=== PATIENT | female | born 1935 | race Caucasian/White ===

== ENCOUNTER 2016-08-23 13:17 | Outpatient (CLI) | payer MEDICARE, OTHER ==
[2016-03-26 12:48] VITALS: BP 152/68
== END 2016-08-23 13:19 ==
LOC: CARD 13:17
PROVIDERS: ATTEND Internal Medicine Cardiovascular Disease
DX: I10 Essential (primary) hypertension (principal)
CPT/HCPCS: 93005; G0463

== ENCOUNTER 2017-01-29 18:04 | Emergency (ER) | payer MEDICARE, OTHER ==
[2017-01-29 18:24] LABS: BASOPHILS % 0.3 (0.0-1.5); EOSINOPHILS % 1.6 % (0.0-6.8); MEAN CORPUSCULAR HEMOGLOBIN 31.3 pg (28.0-34.0); MEAN CORPUSCULAR VOLUME 93.6 fl (80.0-100.0); MONOCYTES % 4.2 % (0.0-11.0); NEUTROPHILS # 6.5 # k/uL (1.4-7.7)
--- NOTE | 2017-01-29 18:26 | ED Physician Documentation ---
Chest Pain - HISTORIAN Historian: patient, child - HPI Stated Complaint: Shortness of Breath Chief Complaint: Chest Pain Additional Information: OUT IN YARD PULLING WEEDS X 30 MINUTES OR LSO DEVELOPED EPIGASTRIC DISTRESS WENT INTO HOUSE HAD SOB-ALL BETTER ESS GONE NOW AND DIAPHORESIS Onset: hours (1) Duration: other (30 MINUTES) Last known Well Date: 01/29/17 Last Known Well Time: 09:42 Context: activity (PULLED STOOPING OVER) Severity: moderate Quality: pressure, indigestion (FELT THAT IF COULD BURP WOULD BE BETTER) Chest Pain Radiation: no radiation Chest Pain Signs/Symptoms: diaphoresis, dyspnea, tachypnea, tachycardia, hypotension, palpitations. denies: nausea, vomiting, dizziness Worsened By: nothing Relieved By: rest - ROS CONST: no problems MS/LYMPH: none. denies: neck pain, calf pain, ankle swelling, back pain GI/: none EYES/ENT: none SKIN/ENDO: none NEURO/PSYCH: none - PAST HX NH risk factors: hypertension, other (HEART MURMUR RAD TO CAROTID) TAD/AAA risk factors: none Neuro deficit: none GI disease: GERD, peptic ulcer Lung disease: none Surgeries/Procedures: cholecysectomy, appendectomy, other (STOMACH YHRS AGO FOR PUD) Allergies/Adverse Reactions: Allergies Allergy/AdvReac Type Severity Reaction Status Date / Time Sulfa (Sulfonamide Allergy Hives Verified 01/29/17 18:19 Antibiotics) Home Medications: Ambulatory Orders Medication Instructions Recorded Diltiazem HCl [Diltiazem 24Hr Cd] 240 mg PO DAILY 01/29/17 Esomeprazole Magnesium 40 mg PO DAILY 01/29/17 [Esomeprazole Magnesium] Hydrochlorothiazide 25 mg PO DAILY 01/29/17 [Hydrochlorothiazide] - SOCIAL HX Smoking History: non-smoker Alcohol Use: none Drug Use: none - FAMILY HX Family HX: none - VITAL SIGNS Vital Signs: Vital Signs Temp Pulse Resp BP Pulse Ox 97.1 F L 88 18 171/73 97 01/29/17 18:05 01/29/17 18:13 01/29/17 18:05 01/29/17 18:05 01/29/17 18:13 - REVIEWED ASSESSMENTS Nursing Assessment Reviewed: Yes Vitals Reviewed: Yes ED Results Lab/Radiology - Radiology Radiology Impressions: cxr no acute disease - Orders Orders: ED Orders Category Date Time Status Continuous EKG monitoring Q30M Care 01/29/17 18:13 Ordered Continuous Pulse Oximetry Q30M Care 01/29/17 18:13 Ordered CHEST 1 VIEW [RAD] Stat Exams 01/29/17 18:13 Ordered CBC/PLATELET/DIFF Routine Lab 01/29/17 18:13 Ordered CMP Routine Lab 01/29/17 18:13 Ordered CREATINE KINASE Routine Lab 01/29/17 18:13 Ordered TROPONIN I (cTnI) Stat Lab 01/29/17 18:13 Ordered Oxygen Daily Oxygen 01/29/17 18:15 Ordered EKG WITH COMPARISON Stat Ther 01/29/17 18:13 Ordered Chest Pain Physical Exam - EXAM General Appearance: no acute distress EENT: eye inspection normal Neck: nml inspection, JVD present, lymphadenopathy. No: no carotid bruit Respiratory: no resp. distress, chest non-tender, nml breath sounds CVS: reg. rate & rhythm, other (SYS MURMUR PROBABLY PULMONIC). No: no murmur Abdomen: soft, non-tender Skin: warm/dry, normal color. No: cyanosis, diaphoresis, jaundice Extremities: non-tender, normal range of motion, no evidence of injury, no edema Neuro: oriented X3, motor nml, sensation nml, mood/affect nml Discharge Clincal Impression: aacute gerd exaberation, hypokalemia, abn LFT'S UDO Referrals: Gareth Douglas MD [Primary Care Provider] - 2 Days Additional Instructions: PT TO AND POTASSIUM ALSO SEE DR DOUGLAS VERY SOON RE LFT Condition: Good Disposition: 01 HOME, SELF-CARE Decision to Admit: NO Decision Time: 19:32
[2017-01-29 18:40] LABS: eGFR (African) > 60; eGFR (Non-African) > 60
--- NOTE | 2017-01-29 18:48 | Diagnostic Imaging Report ---
[facility] [id number] [id number] Report Submission Date: Jan 29, 2017 6:46:01 PM CDT Patient Study Name: RODDY CHACON Date: Jan 29, 2017 6:26:36 PM CDT Modality Type: CR Gender: F Description: CHEST : 31 Institution: [facility] Physician: EMMANUEL HULL - ER Examination: Portable chest History: Chest discomfort Comparison exam: None provided Findings: Single view of the chest demonstrates a normal cardiac silhouette. Elevation of the right hemidiaphragm. Vascular calcifications involving the aortic arch. Lung golden without focal infiltrate. No effusion. Osseous structures are appropriate for age. Impression: No gross consolidation or effusion given technique. Electronically signed on Jan 29, 2017 6:46:01 PM CDT by: Freddy TAYLOR
[2017-01-29] MEDS ORDERED: MAG HYDROX/AL HYDROX/SIMETH 30 ML, Lidocaine 2%Visc 15ml 20 MG, PHENobarb/HYOSCY/ATROPI... PO ONE ×3 (19:50)
[2017-01-29] MEDS ORDERED: ONDANSETRON HCL 4 MG TAB.RAPDIS PO ONE (19:51)
[2017-01-29] MEDS ORDERED: MAG HYDROX/AL HYDROX/SIMETH 30 ML UDC PO ONE (19:58)
[2017-01-29] MEDS ORDERED: Lidocaine 2%Visc 15ml 20 MG/ML UDC ONE (19:58)
[2017-01-29 23:05] VITALS: BP 162/75
== END 2017-01-29 22:10 | disposition home or self-care (01) ==
LOC: ED 18:04
DX: K21.9 Gastro-esophageal reflux disease without esophagitis (principal); E87.6 Hypokalemia; R94.5 Abnormal results of liver function studies
CPT/HCPCS: 71010; 80053; 82550; 83690; 84484; 85025; A9270; 99283; S1016

== ENCOUNTER 2017-01-31 12:56 | Outpatient (CLI) | payer MEDICARE, OTHER | END 2017-01-31 12:57 | LOC: CARD 12:56 | PROVIDERS: ATTEND Internal Medicine Cardiovascular Disease | DX: I35.0 Nonrheumatic aortic (valve) stenosis (principal); I47.1 Supraventricular tachycardia; I10 Essential (primary) hypertension | CPT/HCPCS: G0463 ==

== ENCOUNTER 2017-02-14 11:42 | Outpatient (CLI) | payer MEDICARE, OTHER ==
[2017-02-14 12:29] LABS: eGFR (African) > 60; eGFR (Non-African) > 60
== END 2017-02-14 11:43 ==
LOC: LAB 11:42
PROVIDERS: ATTEND Family Medicine
DX: E87.6 Hypokalemia (principal)
CPT/HCPCS: 36415; 80053

== ENCOUNTER 2017-06-20 11:19 | Outpatient (CLI) | payer MEDICARE, OTHER | END 2017-06-20 11:20 | LOC: CARD 11:19 | PROVIDERS: ATTEND Internal Medicine Cardiovascular Disease | DX: I35.0 Nonrheumatic aortic (valve) stenosis (principal); Z86.79 Personal history of other diseases of the circulatory system; I10 Essential (primary) hypertension | CPT/HCPCS: G0463 ==

== ENCOUNTER 2018-01-23 11:15 | Outpatient (CLI) | payer MEDICARE | END 2018-01-23 11:16 | LOC: CARD 11:15 | PROVIDERS: ATTEND Internal Medicine Cardiovascular Disease | DX: Q25.3 Supravalvular aortic stenosis (principal); Z86.79 Personal history of other diseases of the circulatory system; I10 Essential (primary) hypertension | CPT/HCPCS: 93307; G0463 ==

== ENCOUNTER 2018-06-28 15:30 | Outpatient (CLI) | payer MEDICARE ==
[2018-06-28 16:19] LABS: eGFR (Non-African) > 60
== END 2018-06-28 15:33 ==
LOC: LAB 15:30
PROVIDERS: ATTEND Family Medicine
DX: I10 Essential (primary) hypertension (principal)
CPT/HCPCS: 36415; 80053; 80061

== ENCOUNTER 2018-08-16 19:09 | Emergency (ER) | payer MEDICARE, OTHER ==
[2018-08-16 19:30] VITALS: BP 160/73
--- NOTE | 2018-08-16 19:30 | ED Physician Documentation ---
Skin Rash - HISTORIAN Historian: patient - HPI Stated Complaint: rash Chief Complaint: Skin Rash Onset: days ago (6) Timing: still present Duration: persistent since Location: RUE, LUE, RLE, LLE Quality: itchy Identified Cause?: Yes (new laundry soap) Where: home Context: Medication Exposure: none Context: Food Exposure: none Further Comments: yes (SHe states she switched laundry soap a few days ago almo st a week and has noticed since havin a rash> She states the rash is increased at night and does itch. She has taken benadryl which does help however today at her cardiac rehab her b/p was 110/60 and she felt this was too low. Denies any shortness of breath. She had taken a benadryl about 1 hour prior to this reading.) - ROS CONST: none CVS/RESP: denies: shortness of breath EYES/ENT: denies: eye redness, eye itching, sore throat MS/SKIN/LYMPH: rash NEURO/PSYCH: none - PAST HX Past History: hypertension Immunizations: UTD Allergies/Adverse Reactions: Allergies Allergy/AdvReac Type Severity Reaction Status Date / Time Sulfa (Sulfonamide Allergy Hives Verified 08/16/18 19:31 Antibiotics) - SOCIAL HX Smoking History: non-smoker Alcohol Use: none Drug Use: none - FAMILY HX Family History: none - VITAL SIGNS Vital Signs: Vital Signs Temp Pulse Resp BP Pulse Ox 98.0 F 90 20 160/73 95 08/16/18 19:46 08/16/18 19:46 08/16/18 19:46 08/16/18 19:46 08/16/18 19:46 - REVIEWED ASSESSMENTS Nursing Assessment Reviewed: Yes Vitals Reviewed: Yes ED Results Lab/Radiology - Orders Orders: ED Orders Category Date Time Status Loratadine [Claritin] Med 08/16/18 19:41 Discontinued 10 mg PO NOW ONE predniSONE [Deltasone] Med 08/16/18 19:41 Discontinued 20 mg PO NOW ONE Skin Rash Physical Exam - EXAM General Appearance: no acute distress, alert Skin: warm,dry, skin rash, erythema (bilateral arms lower and bilateral legs upper and right buttock red raised rash ) Character: patchy, urticarial, erythematous Symptoms: warmth, tenderness Extremities: non-tender EENT: eyes nml inspection Neck: trachea midline Respiratory: no resp distress, chest non-tender, breath sounds normal CVS: reg. rate & rhythm Abdomen: non-tender Neuro/Psych: oriented x3 Discharge Clincal Impression: Skin rash Referrals: Gareth Douglas MD [Primary Care Provider] - 2 Days Comments: 1. claritin 10 mg take 1 by mouth daily x 10 days 2. Prednisone 20 mg take 1 by mouth daily x 6 days 3. Continue zantac 4. lotion that you scoop 5. Rash will increase with heat 6. See PCP in 2 days 7. Return to ER for increasing concerns Condition: Stable Disposition: 01 HOME, SELF-CARE Decision to Admit: NO Date of Decison to Admit: 08/16/18 Decision Time: 19:47
[2018-08-16] MEDS: LORATADINE 10 MG TABLET PO ONE (19:46)
[2018-08-16] MEDS: predniSONE 20 MG TABLET PO ONE (19:46)
== END 2018-08-16 19:50 | disposition home or self-care (01) ==
LOC: ED 19:09
DX: R21 Rash and other nonspecific skin eruption (principal)
CPT/HCPCS: 99283